=== PATIENT | male | born 1955 | race Hispanic/Latino ===

== ENCOUNTER 2020-11-15 13:18 | Observation (INO) | payer SELFPAY ==
[~2020-11-15 13:18] MED LIST: Iopamidol-370 76% 500 ML 1 ML ONE
[2020-11-15 13:43] LABS: #Basophils 0.1 thou/uL (0.0-0.2); #Lymphocytes 0.8 thou/uL (1.20-3.40); #Monocytes 0.8 thou/uL (0.11-0.59); %Basophils 0.6 % (0.0-1.0); %Eosinophils 0.2 % (0.0-10.0); %Lymphocytes 8.3 % (21.0-51.0); Hemoglobin 15.5 g/dL (14.0-18.0); Mean Corpuscular HGB CONC 33.4 g/dL (32.0-36.0); Mean Corpuscular Hemoglobin 30.4 pg (27.0-31.0); Mean Corpuscular Volume 91.1 fL (78.0-98.0); Mean Platelet Volume 9.4 fL (7.4-10.4); Platelet Count 156 thou/uL (130-400); RBC Distribution Width 12.3 % (11.5-14.5); Red Blood Cell (RBC) Count 5.11 mill/uL (4.70-6.10); White Blood Cell (WBC) Count 9.6 thou/uL (4.8-10.8)
[2020-11-15 14:07] LABS: ALT (SGPT) 10 U/L (8-55); AST (SGOT) 28 U/L (5-34); Albumin 3.9 g/dL (3.4-4.8); Alkaline Phosphatase 112 U/L (40-110); Anion Gap 14 mmol/L (10-20); BUN (Urea Nitrogen) 10 mg/dL (8.4-25.7); Bilirubin, Total 0.7 mg/dL (0.2-1.2); Calc. Creatinine Clearance 0 mL/min (70-130); Calcium 9.3 mg/dL (7.8-10.44); Carbon Dioxide 22 mmol/L (23-31); Chloride 106 mmol/L (98-107); Globulin 3.7 g/dL (2.4-3.5); Glucose 109 mg/dL (80-115); Lipase 36 U/L (8-78); Potassium 5.2 mmol/L (3.5-5.1); Protein, Total 7.6 g/dL (5.8-8.1); Sodium 137 mmol/L (136-145)
[2020-11-15] MEDS ORDERED: Ondansetron PF 4 MG/2 ML Vial ONE ×2 (14:39→18:45)
[2020-11-15 15:08] LABS: Bilirubin 2+ (Negative); Blood, Urine Negative (Negative); Clarity Clear (Clear); Glucose, Urine (Dipstick) 300 mg/dL (Negative); Ketone, Urine Negative (Negative); Leukocyte Negative Leu/uL (Negative); Nitrite Negative (Negative); Protein, Urine (Dipstick) Negative (Neg-Trace); Specific Gravity, Urine 1.022 (1.002-1.036); Urobilinogen Normal mg/dL (Less than 2)
[2020-11-15] MEDS ORDERED: Morphine 4 MG/ML VIAL ONE (16:07)
[2020-11-15 16:33] LABS: PTT 31.7 sec (22.9-36.1); Prothrombin Time 13.4 sec (12.0-14.7)
[2020-11-15 17:15] LABS: SARS-CoV-2 NAA Rapid Test Not Detected (NotDetected)
[2020-11-15] MEDS ORDERED: Lidocaine 1% w/Epinephrine 1:100K 20 ML VIAL ONE (18:15)
[2020-11-15] MEDS ORDERED: Bupivacaine 0.25% HCL 30 ML VIAL ONE (18:15)
[2020-11-15] MEDS ORDERED: Fentanyl 100 MCG/2 ML VIAL ONE ×2 (18:16→20:57)
[2020-11-15] MEDS ORDERED: Glycopyrrolate 0.2 MG/ML 5 ML SYRINGE ONE (18:45)
[2020-11-15] MEDS ORDERED: Rocuronium Bromide 10 MG/ML (10ML VIAL) ONE (18:45)
[2020-11-15] MEDS ORDERED: Dexamethasone 20 MG/5 ML VIAL ONE (18:45)
[2020-11-15] MEDS ORDERED: Succinylcholine 200 MG/10 ml SYRINGE FS ONE (18:45)
[2020-11-15] MEDS ORDERED: Lidocaine 1% PF 5 ML VIAL ONE (18:45)
[2020-11-15] MEDS ORDERED: PROPOFOL 200 MG/20 ML VIAL ONE (18:45)
[2020-11-15] MEDS ORDERED: Dextrose 5% in Water 1,000 ML IV PRN (21:11)
[2020-11-15] MEDS ORDERED: Dextrose 50% Abboject 50 ML SYRINGE SLOW IVP PRN (21:11)
[2020-11-15] MEDS ORDERED: traMADol HCl 50 MG TAB PO PRN (21:11)
[2020-11-15] MEDS ORDERED: Morphine 4 MG/ML VIAL SLOW IVP PRN (21:11)
[2020-11-15] MEDS ORDERED: Ibuprofen 200 MG TAB PO PRN (21:11)
[2020-11-15] MEDS ORDERED: Ondansetron PF 4 MG/2 ML Vial IVP PRN (21:11)
[2020-11-15] MEDS: Sodium Chloride 0.9% 1,000 ML IV SCH (22:32)
[2020-11-15 23:04] VITALS: BMI 23.6
[2020-11-15] MEDS: Acetaminophen 500 MG TAB PO SCH (23:50)
[2020-11-15] MEDS: traMADol HCl 50 MG TAB PO SCH (23:51)
[2020-11-16] MEDS: traMADol HCl 50 MG TAB PO SCH ×2 (05:31→10:46)
[2020-11-16] MEDS: Acetaminophen 500 MG TAB PO SCH ×2 (05:33→10:46)
[2020-11-16] MEDS: Sodium Chloride 0.9% 1,000 ML IV SCH (05:34)
[2020-11-16 06:56] LABS: #Monocytes 0.3 thou/uL (0.11-0.59); #Neutrophils 9.3 thou/uL (1.40-6.50); %Basophils 0.2 % (0.0-1.0); %Eosinophils 0.2 % (0.0-10.0); %Lymphocytes 9.1 % (21.0-51.0); %Neutrophils 87.5 % (42.0-75.0); Hemoglobin 13.9 g/dL (14.0-18.0); Mean Corpuscular HGB CONC 31.9 g/dL (32.0-36.0); Mean Corpuscular Hemoglobin 29.1 pg (27.0-31.0); Mean Corpuscular Volume 91.3 fL (78.0-98.0); Mean Platelet Volume 9.8 fL (7.4-10.4); Platelet Count 148 thou/uL (130-400); RBC Distribution Width 12.2 % (11.5-14.5); Red Blood Cell (RBC) Count 4.78 mill/uL (4.70-6.10); White Blood Cell (WBC) Count 10.7 thou/uL (4.8-10.8)
[2020-11-16 07:17] LABS: Anion Gap 9 mmol/L (10-20); BUN (Urea Nitrogen) 9 mg/dL (8.4-25.7); Calc. Creatinine Clearance 92 mL/min (70-130); Carbon Dioxide 26 mmol/L (23-31); Chloride 106 mmol/L (98-107); Glucose 163 mg/dL (80-115); Sodium 137 mmol/L (136-145)
[2020-11-16 08:55] VITALS: BP 112/65; TEMP 97.5
[2020-11-16] MEDS ORDERED: Senokot S 8.6-50 MG TAB PO SCH (09:00)
== END 2020-11-16 13:09 | disposition home or self-care (01) ==
LOC: ERS 13:18 → T4-B 17:55 → SDC/OP 17:58 → T4-B 18:55
PROVIDERS: ADMIT Surgery; ATTEND Surgery
PROC: 0YU50JZ Supplement Right Inguinal Region with Synthetic Substitute, Open Approach (ICD-10-PCS; principal; 2020-11-16)
DX: K40.30 Unilateral inguinal hernia, with obstruction, without gangrene, not specified as recurrent (principal); Z20.822 Contact with and (suspected) exposure to COVID-19
CPT/HCPCS: 36415; 74177; 80048; 80053; 81003; 83690; 85025; 85610; 85730; 88302; 90471; 90732; 94640; 94760; 96374; 96375; C1781; G0009; G0378; J1100; J2270; J2405; J2704; J3010; J7620; Q9967; S0020; U0002